=== PATIENT | female | born 1970 | race Caucasian/White ===

== ENCOUNTER 2020-03-03 19:56 | Emergency (ER) | payer OTHER ==
[~2020-03-03] VITALS: Ht 152.4 cm; Wt 59.0 kg
[2020-03-03 21:12] VITALS: BP 191/140
== END 2020-03-03 21:15 | disposition home or self-care (01) ==
LOC: ER 19:56
DX: S00.12XA Contusion of left eyelid and periocular area, initial encounter (principal); F10.129 Alcohol abuse with intoxication, unspecified; Y90.9 Presence of alcohol in blood, level not specified; W19.XXXA Unspecified fall, initial encounter; Y93.89 Activity, other specified; Y92.89 Other specified places as the place of occurrence of the external cause; Y99.8 Other external cause status